=== PATIENT | male | born 1970 | race Caucasian/White ===

== ENCOUNTER 2022-01-12 03:20 | Emergency (ER) | payer MEDICAID ==
[~2022-01-12] VITALS: Ht 180.3 cm; Wt 86.6 kg
[2022-01-12 03:41] VITALS: BP 124/70
[2022-01-12] MEDS ORDERED: CLIN300C12 PO (03:55)
--- NOTE | 2022-01-12 03:57 | NUR ---
Patient discharged to home in stable condition. Written and verbal after care instructions given. Patient verbalizes understanding of instruction. Pt ambulatory with a steady gait
== END 2022-01-12 04:01 | disposition home or self-care (01) ==
LOC: ER 03:36
DX: L02.416 Cutaneous abscess of left lower limb (principal); L02.215 Cutaneous abscess of perineum; L03.116 Cellulitis of left lower limb; L03.315 Cellulitis of perineum; F17.200 Nicotine dependence, unspecified, uncomplicated; Z60.2 Problems related to living alone

== ENCOUNTER 2022-03-14 09:25 | Emergency (ER) | payer MEDICAID ==
[~2022-03-14] VITALS: Ht 172.7 cm; Wt 10.0 kg
[~2022-03-14 09:25] MED LIST: CLIN300C12 PO
[2022-03-14 09:33] VITALS: BP 130/80
--- NOTE | 2022-03-14 09:33 | NUR ---
BIBS STATING THAT HE BRUSHED AGAINST ROCKS WHILE SURFING ON 03/09 AND STARTING TO LOOK INFECTED. PT DENIES ANY PAIN. AWAITING MD DE LA VEGA.
[2022-03-14] MEDS ORDERED: DOXY100C2 PO (09:47)
[2022-03-14] MEDS ORDERED: LEVO750T46 PO (09:49)
[2022-03-14] MEDS ORDERED: CEPH500C2 PO (09:49)
[2022-03-14] MEDS ORDERED: BACI/NEOM/POLY B OINT PKT 1 UDPKT PACKET TP ONE (10:00)
[2022-03-14] MEDS ORDERED: BACI/NEOM/POLY B OINT PKT 1 UDPKT PACKET ONE (10:04)
--- NOTE | 2022-03-14 10:13 | NUR ---
Patient discharged to home in stable condition. Written and verbal after care instructions given. Patient verbalizes understanding of instruction.
== END 2022-03-14 10:14 | disposition home or self-care (01) ==
LOC: ER 09:45
DX: L03.115 Cellulitis of right lower limb (principal); F17.200 Nicotine dependence, unspecified, uncomplicated; Z60.2 Problems related to living alone; Z79.899 Other long term (current) drug therapy
CPT/HCPCS: 99283; A6403